=== PATIENT | male | born 1975 | race Caucasian/White ===

== ENCOUNTER 2020-08-31 20:13 | Emergency (ER) | payer SELFPAY ==
--- NOTE | 2020-08-31 20:30 | NUR ---
PATIENT CALLED TO BE TRAIGED BUT WAS NOT PRESENT.
--- NOTE | 2020-08-31 21:00 | NUR ---
PATIENT CALLED TO BE TRAIGED BUT PATIENT WAS NOT PRESENT.
--- NOTE | 2020-08-31 21:30 | NUR ---
PATIENT CALLED SEVERAL TIMES TO BE TRAIGED. PATIENT WAS NOT PRESENT.
--- NOTE | 2020-08-31 21:45 | NUR ---
PATIENT WAS NOT TRAIGED OR SEEN BY ERMD.
== END 2020-08-31 22:15 | disposition left against medical advice (07) ==
LOC: ER 20:15
DX: Z53.21 Procedure and treatment not carried out due to patient leaving prior to being seen by health care provider (principal)

== ENCOUNTER 2020-09-05 18:36 | Inpatient (IN) | payer OTHER ==
[~2020-09-05] VITALS: Ht 188 cm; Wt 140.3 kg
--- NOTE | 2020-09-05 19:54 | NUR ---
Placed patient in gown
--- NOTE | 2020-09-05 20:00 | NUR ---
Patient ambulated with steady gait. Patient A/Ox3. Speech is clear, speaks in complete sentences. No acute neuro deficits. Patient came for multiple complaints. Patient appears disheveled, is unkempt and dirty. Respiratory even and unlabored, no cough or sob. Patient has sores on bilateral LE's.
--- NOTE | 2020-09-05 20:45 | NUR ---
Patient transported to CT in stable condition.
[2020-09-05 21:19] LABS: BASOPHILS % (AUTO) 0.2 % (0.0-2.0); EOSINOPHILS # (AUTO) 0.5 K/uL (0.0-0.7); EOSINOPHILS % (AUTO) 6.2 % (0.0-7.0); HEMATOCRIT 34.1 % (36.7-47.1); HEMOGLOBIN 10.9 g/dL (12.5-16.3); LYMPHOCYTES % (AUTO) 12.7 % (20.5-51.5); MEAN CORPUSCULAR HEMOGLOBIN 23.7 uug (23.8-33.4); MEAN CORPUSCULAR HGB CONC 32 g/dL (32.5-36.3); MEAN CORPUSCULAR VOLUME 74.2 fL (73.0-96.2); MONOCYTES # (AUTO) 0.5 K/uL (2.0-10.0); MONOCYTES % (AUTO) 6.4 % (0.0-11.0); NEUTROPHILS # (AUTO) 6.2 K/uL (1.8-8.9); NEUTROPHILS % (AUTO) 74.5 % (38.5-71.5); PLATELET COUNT (AUTO) 305 K/uL (152-348); WHITE BLOOD COUNT (AUTO) 8.3 K/uL (3.6-10.2)
[2020-09-05 21:29] LABS: CREATININE 1.2 mg/dL (0.6-1.3); POTASSIUM 3.5 mmol/L (3.5-5.1)
[2020-09-05 21:45] LABS: BILIRUBIN,DIRECT 0.1 mg/dL (0.0-0.2); BILIRUBIN,TOTAL 0.4 mg/dL (0.2-1.0)
[2020-09-05 21:50] LABS: EOSINOPHILS % (MANUAL) 5 % (0-8); LYMPHOCYTES % (MANUAL) 14 % (20-40); MONOCYTES % (MANUAL) 5 % (2-10); NEUTROPHILS % (MANUAL) 76 % (42-75)
--- NOTE | 2020-09-05 22:11 | NUR ---
Taran, US tech at bedside for imaging
[2020-09-05] MEDS ORDERED: VANCOMYCIN 1G/D5W 200 ML PIGGYBACK IV ONE (22:30)
[2020-09-05] MEDS ORDERED: ENOXAPARIN SODIUM 100 MG/ML DISP.SYRIN SQ ONE ×2 (22:30→22:39)
[2020-09-05] MEDS ORDERED: VANCOMYCIN IV 200 ML ONE (22:39)
[2020-09-05] MEDS ORDERED: IOHEXOL 350 100 ML INFUS..BTL ONE (23:13)
[2020-09-05] MEDS ORDERED: SWABABLE VALVE TRANSFER SET EA MC ONE (23:13)
[2020-09-05] MEDS ORDERED: IV NORMAL SALINE 250 ML IV ONE (23:14)
--- NOTE | 2020-09-05 23:42 | NUR ---
Patient transported to CT in stable condition.
--- NOTE | 2020-09-06 01:32 | NUR ---
Patient asleep in bed, NAD, will continue to monitor.
--- NOTE | 2020-09-06 01:50 | NUR ---
Dr. Hoyos on panel call with Esdras Gooden DNP. Patient accepted for admission to [facility], diagnosis: DVT.
--- NOTE | 2020-09-06 02:24 | NUR ---
Report given to TERRANCE Sandy
--- NOTE | 2020-09-06 02:54 | NUR ---
Admitted a 44 y/o male to telemetry with an admitting diagnosis of LE cellulitis. Pt ambulated to the bed. Admission care rendered. Belongings at bedside. Safety measures initiated, call light within reach. No s/s of respiratory distress, denies any pain or discomfort. will continue to monitor.
[2020-09-06] MEDS ORDERED: Z GUARD REMEDY PASTE 57 GM TUBE TOP PRN (03:00)
[2020-09-06] MEDS ORDERED: ACETAMINOPHEN 325 MG TABLET PO PRN (03:00)
[2020-09-06] MEDS ORDERED: ONDANSETRON 4 MG/2 ML VIAL IV PRN (03:00)
[2020-09-06 03:05] VITALS: BP 146/97
--- NOTE | 2020-09-06 03:57 | NUR ---
Sinus rhythm on tele at 97/min.
[2020-09-06 04:55] VITALS: BP 134/86
--- NOTE | 2020-09-06 06:17 | NUR ---
Pt in bed, sleeping but arousable to name. No s/s of respiratory distress. NSR on tele at 90/min. Denies pain or discomfort. Safety measures maintained at all times. call light within reach. all needs attended. Has an order for wound care consult and wound culture w/gs for LE cellulitis. Will endorse to day shift nurse.
[2020-09-06 06:42] LABS: BASOPHILS % (AUTO) 0.2 % (0.0-2.0); EOSINOPHILS # (AUTO) 0.6 K/uL (0.0-0.7); EOSINOPHILS % (AUTO) 9.1 % (0.0-7.0); HEMATOCRIT 32.1 % (36.7-47.1); HEMOGLOBIN 10.2 g/dL (12.5-16.3); LYMPHOCYTES # (AUTO) 1.3 K/uL (20.0-40.0); LYMPHOCYTES % (AUTO) 20.6 % (20.5-51.5); MEAN CORPUSCULAR HEMOGLOBIN 23.8 uug (23.8-33.4); MEAN CORPUSCULAR HGB CONC 32 g/dL (32.5-36.3); MEAN CORPUSCULAR VOLUME 74.6 fL (73.0-96.2); MONOCYTES # (AUTO) 0.6 K/uL (2.0-10.0); MONOCYTES % (AUTO) 9.8 % (0.0-11.0); NEUTROPHILS # (AUTO) 3.9 K/uL (1.8-8.9); NEUTROPHILS % (AUTO) 60.3 % (38.5-71.5); PLATELET COUNT (AUTO) 297 K/uL (152-348); WHITE BLOOD COUNT (AUTO) 6.5 K/uL (3.6-10.2)
[2020-09-06 07:04] LABS: CREATININE 1.1 mg/dL (0.6-1.3); POTASSIUM 3.4 mmol/L (3.5-5.1)
[2020-09-06 07:18] LABS: THYROID STIMULATING HORMONE 1.423 mIU/mL (0.358-3.740)
--- NOTE | 2020-09-06 07:45 | NUR ---
Received in bed sleeping but arousable to name. No respiratory distress. Iv on lfa intact and patent. Bed is low and locked. Call light within reach. Will continue to monitor.
[2020-09-06 08:16] LABS: EOSINOPHILS % (MANUAL) 11 % (0-8); LYMPHOCYTES % (MANUAL) 27 % (20-40); MONOCYTES % (MANUAL) 3 % (2-10); NEUTROPHILS % (MANUAL) 59 % (42-75)
[2020-09-06] MEDS: HYDROCODONE/APAP 10-325 MG TABLET PO PRN ×2 (08:54→20:19)
[2020-09-06] MEDS ORDERED: FUROSEMIDE 20 MG/2 ML VIAL IV SCH (09:00)
[2020-09-06] MEDS ORDERED: POTASSIUM CHLORIDE 20 MEQ TAB.PRT.SR PO ONE (09:45)
--- NOTE | 2020-09-06 09:45 | NUR ---
[place] patient yell, went to the room but no on there. Patient saying "leave me alone". Asked patient if he's ok he says yeah im fine.
--- NOTE | 2020-09-06 09:49 | NUR ---
Patient is insisting to shower, on tele monitor. Informed Dr. Gil and said it's ok. Will continue to monitor.
[2020-09-06] MEDS: APIXABAN 5 MG TABLET PO SCH ×2 (10:36→20:18)
--- NOTE | 2020-09-06 11:07 | NUR ---
Patient complained of throat pain for 2 days now. No lumps felt around throat. He said it's more inside, unable to fully describe pain. Uvula a little swollen and with white patches. Informed Dr. Gil. Waiting for response.
[2020-09-06 11:36] VITALS: BP 136/87
--- NOTE | 2020-09-06 11:42 | NUR ---
Dr. Gil with order to do swallow eval noted and carried out.
--- NOTE | 2020-09-06 12:13 | NUR ---
WOUND CARE CONSULT: PT PRESENTS WITH HUGE CIRCUMFERENTIAL ULCER TO LEFT LOWER LEG WITH REDNESS, EDEMA AND DRY WOUNDS TO RT LOWER LEG, ALL PRESENT ON ADMISSION. DR DUMONT NOTIFIED OF DPM CONSULT REQUEST. IN AGREEMENT WITH PLAN OF CARE.
--- NOTE | 2020-09-06 14:00 | NUR ---
Patient noted talking, appears to be answering someone. He said his friend's trying to get him to go out tonight and he replied "i'm not going anywhere." Asked him about his friend sarah matias to himself and says he's just a friend.
[2020-09-06] MEDS: VANCOMYCIN IV 1,500 MG in IV DEXTROSE 5% 500 ML IV SCH ×2 (14:18→23:22)
--- NOTE | 2020-09-06 14:23 | NUR ---
Spoke with Dr. Kemp and informed patient's condition. Patient refused facetime with MD and said there's nothing wrong with him. Denies he's talking to someone.
--- NOTE | 2020-09-06 14:40 | NUR ---
Dr. Calvert with the patient for wound debridement, obtained informed consent. Will continue to monitor.
[2020-09-06] MEDS: OLANZAPINE ZYDIS 5 MG TAB.RAPDIS PO SCH ×3 (15:45→17:40)
[2020-09-06 16:00] VITALS: BP 153/97
--- NOTE | 2020-09-06 16:08 | NUR ---
Dr. Gil made aware of blood pressure readings today with order for Nifedipine er 30mg qd noted and carried out. Patient aware.
[2020-09-06] MEDS ORDERED: NIFEdipine 10 MG CAPSULE PO SCH (17:00)
--- NOTE | 2020-09-06 18:12 | NUR ---
Patient refused Zyprexa 2x. Also refused Dr. Kemp's consult this am. Dr. Gil made aware. Will continue to monitor.
--- NOTE | 2020-09-06 19:04 | NUR ---
PATIENT WATCHING TV. IN NO ACUTE DISTRESS. DENIES PAIN. KEPT COMFORTABLE. SAFETY MEASURES MAINTAINED. NEEDS ATTENDED. WILL CONTINUE TO MONITOR.
[2020-09-06 20:12] VITALS: BP_SYST 113; BP_SYST 157; BP_DIAS 65; BP_DIAS 68
[2020-09-06] MEDS ORDERED: ENOXAPARIN SODIUM 40 MG/0.4 ML DISP.SYRIN SQ SCH (21:00)
[2020-09-07 00:06] VITALS: BP 119/80
[2020-09-07] MEDS: HYDROCODONE/APAP 10-325 MG TABLET PO PRN (02:00)
--- NOTE | 2020-09-07 02:15 | NUR ---
PATIENT AWAKE IN BED. C/O THAT IV HEPLOCK NOTED TO LEFT HAND WAS BOTHERING HIM AND HE PULLED IT OUT. PATIENT REFUSING FOR H/L TO BE REINSERTED AT THIS TIME. RN NOTIFIED. ALL NEEDS ATTENDED.
[2020-09-07 04:18] VITALS: BP 117/78
--- NOTE | 2020-09-07 06:07 | NUR ---
PATIENT REFUSING FOR IV INSERTION AT THIS TIME. INSURANCE ANALYST NOTIFIED.
[2020-09-07 06:29] LABS: BASOPHILS % (AUTO) 0.4 % (0.0-2.0); EOSINOPHILS # (AUTO) 0.7 K/uL (0.0-0.7); EOSINOPHILS % (AUTO) 10.2 % (0.0-7.0); HEMATOCRIT 33.8 % (36.7-47.1); HEMOGLOBIN 10.7 g/dL (12.5-16.3); LYMPHOCYTES # (AUTO) 1.7 K/uL (20.0-40.0); LYMPHOCYTES % (AUTO) 26.1 % (20.5-51.5); MEAN CORPUSCULAR HEMOGLOBIN 23.4 uug (23.8-33.4); MEAN CORPUSCULAR HGB CONC 32 g/dL (32.5-36.3); MEAN CORPUSCULAR VOLUME 74.4 fL (73.0-96.2); MONOCYTES # (AUTO) 0.8 K/uL (2.0-10.0); MONOCYTES % (AUTO) 12.4 % (0.0-11.0); NEUTROPHILS # (AUTO) 3.3 K/uL (1.8-8.9); NEUTROPHILS % (AUTO) 50.9 % (38.5-71.5); PLATELET COUNT (AUTO) 336 K/uL (152-348); RED BLOOD CELL COUNT(AUTO) 4.55 MIL/uL (4.06-5.63); WHITE BLOOD COUNT (AUTO) 6.5 K/uL (3.6-10.2)
[2020-09-07 06:43] LABS: MAGNESIUM 2.3 mg/dL (1.8-2.4); PHOSPHOROUS 4.2 mg/dL (2.5-4.9); POTASSIUM 3.6 mmol/L (3.5-5.1)
[2020-09-07 07:32] LABS: EOSINOPHILS % (MANUAL) 12 % (0-8); LYMPHOCYTES % (MANUAL) 20 % (20-40); MONOCYTES % (MANUAL) 12 % (2-10); NEUTROPHILS % (MANUAL) 56 % (42-75)
--- NOTE | 2020-09-07 07:57 | NUR ---
Patient is awake and watching tv. No respiratory distress noted. Denies pain. Bed is low and locked. Safety measures maintained. Call light within reach. Will continue to monitor.
[2020-09-07 08:50] VITALS: BP 122/76
[2020-09-07] MEDS: OLANZAPINE ZYDIS 5 MG TAB.RAPDIS PO SCH ×2 (09:00→17:00)
[2020-09-07] MEDS ORDERED: NIFEdipine 10 MG CAPSULE PO SCH (09:00)
[2020-09-07] MEDS: APIXABAN 5 MG TABLET PO SCH ×2 (09:13→20:42)
[2020-09-07] MEDS: NIFEdipine XL 30 MG TABSR PO SCH (09:26)
--- NOTE | 2020-09-07 11:24 | NUR ---
Able to insert 22g on PIV on left hand. Patient tolerated. Denies pain.
[2020-09-07 11:35] VITALS: BP 121/75
[2020-09-07] MEDS: VANCOMYCIN IV 1,500 MG in IV DEXTROSE 5% 500 ML IV SCH (13:23)
[2020-09-07 15:53] VITALS: BP 143/91
[2020-09-07] MEDS ORDERED: BENZOCAINE/MENTH/CETYLPYRD LOZENGE MM PRN (18:00)
--- NOTE | 2020-09-07 19:21 | NUR ---
Awake and watching tv. No respiratory distress. On IV Vancomycin no adverse reaction noted. Still noted with auditory hallucinations refusing zyprexa. Reoriented patient but he denies. Safety measures maintained. Needs attended. Kept comfortable. Will endorse accordingly.
[2020-09-07 20:12] VITALS: BP 135/86
[2020-09-08 00:06] VITALS: BP 143/91
[2020-09-08] MEDS: VANCOMYCIN IV 1,500 MG in IV DEXTROSE 5% 500 ML IV SCH ×2 (00:53→13:00)
[2020-09-08] MEDS: HYDROCODONE/APAP 10-325 MG TABLET PO PRN (00:53)
[2020-09-08 04:18] VITALS: BP 126/79
--- NOTE | 2020-09-08 06:37 | NUR ---
Pt slept intermittently throughout the night. Denies pain or SOB. Pt was seen talking to himself but when asked who he was speaking to, he states that he was just dreaming. Denies VH or AH. Pt states that IV was hurting him, new IV placed. Vanco given, pt tolerated well. Wound care done to BLE and pictures taken and placed in chart. No other issues or concerns at this time, will endorse to day shift.
[2020-09-08 06:45] LABS: POTASSIUM 3.8 mmol/L (3.5-5.1)
[2020-09-08] MEDS: OLANZAPINE ZYDIS 5 MG TAB.RAPDIS PO SCH ×2 (09:00→17:00)
[2020-09-08] MEDS: NIFEdipine XL 30 MG TABSR PO SCH (10:01)
[2020-09-08] MEDS: APIXABAN 5 MG TABLET PO SCH ×2 (10:03→20:19)
--- NOTE | 2020-09-08 11:00 | NUR ---
Patient request to take shower given by . All dressings on legs changed per orders afterward. Patient request IV dressing change but when music writer was redressing catheter tip severed from hub. Removed 20 gauge catheter and severed tip. Attempt to place catheter unsuccesful x1 stick. Patient request another music writer to insert. Notified Charge Nurse, Ruby Regan RN
[2020-09-08 11:48] VITALS: BP 120/85
--- NOTE | 2020-09-08 15:10 | NUR ---
Dependency Counselor consultation: Dependency Counselor consultation requested for possible homelessness. SW met with the patient today. Patient is alert, oriented, receptive to speaking with this SW, although he watching TV and did not consistently maintain eye contact with this SW throughout this interview. Patient is a 44 year old male. Per ED physician's notes, patient came in to the ED on 09/06 for SOB, complaining of being constipated for 1 year, ulcers on both legs, DVT. Per patient report, he states that he came to the hospital for bug bites and poison, and being constipated for 1 year. Patient states that "I live here and there, in this area". Patient reports he owns a house out of town, but is currently staying in this area. Patient provided the following mailing address: [phone] [place] [address]. Patient reports no emergency contact, patient reports not having any source of income. Patient has [employer] insurance. SW explored patient's needs for community resource, discussing homeless community resources, and patient declined these resources. Patient denied hx of mental illness. Patient denied hx of substance abuse. Discharge plans discussed, and patient reported that he will go back to his previous living arrangements once he is discharged from the hospital. Patient's affect appeared to be blunted, patient's speech was clear, however response were short. Per physician's notes and nursing report, patient has been observed to be speaking to himself, possible hallucinations and delusions are present. Per nursing report, a psychiatric consultation was requested, however patient declined the psychiatric consult. At this time, no further SS interventions are needed, however SW will remain available to the patient, as needed.
[2020-09-08 16:00] VITALS: BP 125/87
--- NOTE | 2020-09-08 19:35 | NUR ---
Awake, sitting on top of bed, eating HS snack,alert and oriented x3, calm and cooperative. Complaint of sore throat, offered coffee to relieve discomforts, agreed. Multiple dressings on both LE. Able to move all extremities without difficulty. Safety measures and fall prevention maintained. Continue care as planned.
[2020-09-08 20:00] VITALS: BP 126/82
[2020-09-09] VITALS: BP 124/86
[2020-09-09] MEDS: VANCOMYCIN IV 1,500 MG in IV DEXTROSE 5% 500 ML IV SCH ×2 (00:45→13:37)
[2020-09-09 04:00] VITALS: BP 131/72
--- NOTE | 2020-09-09 05:51 | NUR ---
Shift End Report: Vs stable. Slept good. Talking by himself, hallucinations noted, No agitation,restlessness. Calm and cooperative with care. Continue IV antibiotics as ordered without s/s of adverse reaction noted. Some ST 103bpm but mostly SR on the monitor. No significant event reported all night. Continue current plan of care.
[2020-09-09] MEDS: APIXABAN 5 MG TABLET PO SCH (08:47)
[2020-09-09] MEDS: NIFEdipine XL 30 MG TABSR PO SCH (08:48)
[2020-09-09] MEDS: OLANZAPINE ZYDIS 5 MG TAB.RAPDIS PO SCH (08:48)
[2020-09-09] MEDS: HYDROCODONE/APAP 10-325 MG TABLET PO PRN (09:30)
[2020-09-09 11:47] VITALS: BP 133/88
[2020-09-09] MEDS ORDERED: ACET325T53 PO (14:49)
[2020-09-09] MEDS ORDERED: APIX5TAB PO (14:49)
[2020-09-09] MEDS ORDERED: OLAN5TAB6 PO (14:49)
[2020-09-09] MEDS ORDERED: ZINC500P16 PO (14:49)
[2020-09-09] MEDS ORDERED: NIFE30TA2 PO (14:49)
[2020-09-09] MEDS ORDERED: RXVAN XX (14:49)
[2020-09-09] MEDS ORDERED: ASCO500P18 PO (14:49)
[2020-09-09] MEDS ORDERED: HYDR-3980 PO (14:49)
--- NOTE | 2020-09-09 15:58 | NUR ---
LEFT AMA. PULLED IV OUT HIMSELF. LEFT WITHOUT SIGNING THE AMA FORM AND UNABLE TO REMOVE [place]
--- NOTE | 2020-09-09 16:00 | NUR ---
SW informed by TERRANCE Jiménez that patient left AMA, and that patient did not sign any AMA paperwork, nor did he sign the homeless patient waiver form.
[2020-09-13] MEDS ORDERED: APIXABAN 5 MG TABLET PO SCH (09:00)
== END 2020-09-09 15:50 | disposition left against medical advice (07) | DRG 197 ==
LOC: ER 18:38 → TELE3 09-06 02:05
PROVIDERS: ADMIT Internal Medicine; ATTEND Internal Medicine
PROC: 0JBP0ZZ Excision of Left Lower Leg Subcutaneous Tissue and Fascia, Open Approach (ICD-10-PCS; principal; 2020-09-06)
DX: I82.411 Acute embolism and thrombosis of right femoral vein (principal); E43 Unspecified severe protein-calorie malnutrition; E66.01 Morbid (severe) obesity due to excess calories; F20.9 Schizophrenia, unspecified; E88.09 Other disorders of plasma-protein metabolism, not elsewhere classified; L03.115 Cellulitis of right lower limb; I50.9 Heart failure, unspecified; L03.116 Cellulitis of left lower limb; L97.818 Non-pressure chronic ulcer of other part of right lower leg with other specified severity; Z59.0 Homelessness; Z68.39 Body mass index [BMI] 39.0-39.9, adult; I87.2 Venous insufficiency (chronic) (peripheral); D63.8 Anemia in other chronic diseases classified elsewhere; E87.6 Hypokalemia; Z20.822 Contact with and (suspected) exposure to COVID-19; M79.662 Pain in left lower leg; M79.661 Pain in right lower leg; F29 Unspecified psychosis not due to a substance or known physiological condition; F19.10 Other psychoactive substance abuse, uncomplicated; R23.4 Changes in skin texture; R94.31 Abnormal electrocardiogram [ECG] [EKG]; I82.491 Acute embolism and thrombosis of other specified deep vein of right lower extremity; I45.10 Unspecified right bundle-branch block; L97.928 Non-pressure chronic ulcer of unspecified part of left lower leg with other specified severity
CPT/HCPCS: 36415; 70030-TC; 71045; 71275; 74021; 83735; 84100; 84443; 85025; 85730; 87070; 87077; 93005; 93307; A4663; G0378; J1650; J1940; J3370; J7050; J7060; Q9967